=== PATIENT | male | born 1985 | race Two or more races ===

== ENCOUNTER → 2018-12-07 | Emergency (ER) | payer MEDICAID | END | disposition left against medical advice (07) | LOC: ER 21:12 | DX: K08.89 Other specified disorders of teeth and supporting structures (principal); Z53.21 Procedure and treatment not carried out due to patient leaving prior to being seen by health care provider ==

== ENCOUNTER 2023-11-16 18:54 | Emergency (ER) | payer MEDICAID ==
[~2023-11-16] VITALS: Ht 180.3 cm; Wt 85.0 kg
[2023-11-16 19:02] VITALS: BP 112/77; PULSE 96; RESP 16; O2SAT 94
== END 2023-11-16 19:19 ==
LOC: ER 18:54 → EDBD 18:54 → ER 19:19
DX: F10.129 Alcohol abuse with intoxication, unspecified (principal); Y90.0 Blood alcohol level of less than 20 mg/100 ml

== ENCOUNTER 2023-11-22 16:11 | Emergency (ER) | payer MEDICAID ==
[~2023-11-22] VITALS: Ht 180.3 cm; Wt 80.0 kg
[2023-11-22 18:26] VITALS: BP 96/67; PULSE 69; RESP 18; TEMP 97.6; O2SAT 99
[2023-11-22] MEDS ORDERED: IBUP-1455 PO (18:44)
[2023-11-22] MEDS: KETOROLAC TROMETH 30 MG/ML 1ML VIAL IM ONE (18:46)
== END 2023-11-22 19:38 | disposition home or self-care (01) ==
LOC: ER 16:11
DX: M25.561 Pain in right knee (principal); M25.461 Effusion, right knee; V98.8XXA Other specified transport accidents, initial encounter; Y93.89 Activity, other specified; Y92.89 Other specified places as the place of occurrence of the external cause; Y99.8 Other external cause status
CPT/HCPCS: 29505; 73562; 96372; 99283; J1885